=== PATIENT | female | born 1985 | race Caucasian/White ===

== ENCOUNTER 2016-05-12 14:38 | Emergency (ER) ==
[2016-05-12 14:46] VITALS: BP 156/100
[2016-05-12] MEDS ORDERED: ROCEPHIN IM ONE (15:36)
[2016-05-12] MEDS ORDERED: XYLOCAINE-MPF 1% INJ ONE (15:36)
--- NOTE | 2016-05-12 15:39 | PROVIDER DOCUMENTATION ---
HPI-Female /OB/Breast - General Chief Complaint: Female Stated Complaint: HERPES OUTBREAK Time Seen by Provider: 05/12/16 14:42 Source: reports: patient Allergies/Adverse Reactions: Patient Allergies Allergy/AdvReac Type Severity Reaction Status Date / Time No Known Allergies Allergy Verified 05/12/16 15:15 Home Medications: Home Medication List Medication Instructions Recorded Confirmed Last Taken Type Paroxetine [Paxil] 20 mg PO DAILY 05/28/15 05/12/16 05/12/16 History Loxapine [Adasuve] 20 mg PO DAILY 01/02/16 05/12/16 05/12/16 History Loxapine [Loxitane] 25 mg PO QHS 01/02/16 05/12/16 05/12/16 History Oxcarbazepine [Trileptal] 300 mg PO BID 01/02/16 05/12/16 05/12/16 History Acyclovir [Zovirax] 800 mg PO TID #21 tablet 05/12/16 Unknown Rx Azithromycin [Zithromax Z-Joe] 250 mg PO DIRECTED #1 pkg 05/12/16 Unknown Rx Fluconazole [Diflucan] 150 mg PO DAILY #2 tablet 05/12/16 Unknown Rx Metronidazole [Flagyl] 500 mg PO BID #20 tablet 05/12/16 Unknown Rx - History of Present Illness-Female /OB Nature of Presenting Problem: Pt is a 31 y/o F c chief complaint of herpetic lesions to her labia majora. Pt has a h/o genital herpes. Pt is requesting acyclovir. On arrival, pt is in minimal distress. Review of Systems - Adult - REVIEW OF SYSTEMS - ADULT Constitutional: reports: no symptoms reported. denies: chills, fatique Eyes: reports: no symptoms reported. denies: blurred vision, double vision Ears, Nose, Mouth & Throat: reports: no symptoms reported. denies: ear pain, nose pain, throat pain Cardiovascular: reports: no symptoms reported. denies: chest pain, irregular heart rate Respiratory: reports: no symptoms reported. denies: cough, shortness of breath Gastrointestinal: reports: no symptoms reported. denies: abdominal pain, nausea Genitourinary: reports: no symptoms reported. denies: dysuria, frequent UTI's Musculoskeletal: reports: no symptoms reported. denies: joint pain, joint swelling Integumentary: reports: no symptoms reported. denies: hives, itching, rash Neurological: reports: no symptoms reported. denies: numbness, paresthesia Psychiatric: reports: anxiety. denies: emotional problems Endocrine: reports: no symptoms reported. denies: cold intolerance, heat intolerance Hematologic/Lymphatic: reports: no symptoms reported. denies: blood clots, low blood count Allergic/Immunologic: reports: no symptoms reported. denies: allergic reactions , food allergy All Other Systems: Reviewed and Negative Past History - Adult - PAST MEDICAL HISTORY-ADULT Review of Records: reports: Old Records Reviewed, Nursing Assessment Review, Medications Reviewed, Social history reviewed & non-contributory. Major Childhood Illnesses: reports: denies history Cardiovascular: reports: denies history Respiratory: reports: denies history Gastrointestinal: reports: denies history Obstetrical/Gynecological: reports: PID/STD Genitourinary: reports: chronic UTI's Musculoskeletal: reports: orthopedic injury Neurological: reports: denies history Psychiatric: reports: bipolar, psychiatric problems, schizophrenia Endocrine/Immune: reports: denies history Other Conditions: reports: denies history - PRIOR SURGERIES/PROCEDURES Surgical/Procedure History: reports: appendectomy, BTL - IMMUNIZATION STATUS Childhood Immunizations: UTD Flu Vaccine: See Nurse Assessment - FAMILY HISTORY Family History: reviewed, not pertinent - SOCIAL HISTORY Smoking: denies Substance Use: none/never Alcohol Use Frequency: never Living Situation: family Physical Exam-General - PHYSICAL EXAM-ADULT Initial Vital Signs Reviewed: Yes - CONSTITUTIONAL General Appearance: appears well, alert, no apparent distress - EYES Eyes: PERRL/EOMI, pink conjunctivae, fundi clear, no AV nicking - HEAD, EARS, NOSE, MOUTH & THROAT HENMT: normocephalic/atraumatic, moist mucous membranes, normal ENT inspection - NECK Neck: non-tender, full range of motion, supple - RESPIRATORY Respiratory: chest non-tender, lungs clear, normal breath sounds - CARDIOVASCULAR Cardiovascular: normal peripheral pulses, regular rate, rhythm, no edema - CHEST (BREASTS) Chest/Breast: deferred - GASTROINTESTINAL (ABDOMEN) Abdominal Exam: normal bowel sounds, non tender, soft - GENITOURINARY Female Genitalia/Pelvic Exam: external exam normal, discharge (white/clear), herpes-like ulcerations (R labia). negative: tender adnexa Rectal Exam: deferred - LYMPHATIC Lymphatic: no adenopathy. negative: inguinal node tender - MUSCULOSKELETAL Back Exam: normal inspection, no CVA tenderness, no vertebral tenderness Extremity: normal range of motion, non-tender, normal gait - SKIN Integumentary: normal color, normal turgor, warm/dry - NEUROLOGIC Neurologic: grossly normal, no motor/sensory deficits - PSYCHIATRIC Psych/Mental Status: normal mood/affect, normal thought content, normal thought process, oriented x 3 Progress - PLAN OF CARE/RESULTS Progress/Plan/Lab Results: Orders Category Date Time Status CefTRIAXONE [Rocephin] Med 05/12/16 15:36 Discontinued 1 gm IM NOW ONE Lidocaine 1% Pf [Xylocaine-Mpf 1%] Med 05/12/16 15:36 Discontinued 5 ml INJ NOW ONE Vital Signs - 24 hr 05/12/16 14:43 Temperature 98.0 F Pulse Rate 132 H Respiratory 18 Rate Blood Pressure 156/100 O2 Sat by Pulse 99 Oximetry Departure - Departure Time of Disposition Order: 15:36 DIAGNOSIS: Possible exposure to STD, Herpes genitalis in women Disposition: HOME 01 Certified Medical Emergency: Emergent Condition: Stable Prescriptions: Fluconazole [Diflucan] 150 mg PO DAILY #2 tablet Metronidazole [Flagyl] 500 mg PO BID #20 tablet Azithromycin [Zithromax Z-Joe] 250 mg PO DIRECTED #1 pkg Acyclovir [Zovirax] 800 mg PO TID #21 tablet Referrals: Reece Sommers [Primary Care Provider] - Dago Jiménez MD [STAFF PHYSICIAN] - Instructions: Sexually Transmitted Disease, [id number], Genital Herpes Attestation - Physician/ KAYLA Attestation Patient care was provided by Advanced Practice Provider:: Yes Advanced Practice Provider:: Mp Calabrese Advanced Practice Provider documentation review:: The Mid-level provider documentation, treatment plan and medical decision making was reviewed by the physician who agrees with all treatment and medical decision making by the [facility].
== END 2016-05-12 16:23 | disposition home or self-care (01) ==
LOC: ED 14:38
DX: Z20.2 Contact with and (suspected) exposure to infections with a predominantly sexual mode of transmission (principal); A60.09 Herpesviral infection of other urogenital tract; Z87.440 Personal history of urinary (tract) infections; Z86.19 Personal history of other infectious and parasitic diseases; F31.9 Bipolar disorder, unspecified; F20.9 Schizophrenia, unspecified; Z79.899 Other long term (current) drug therapy
CPT/HCPCS: J0696